=== PATIENT | female | born 1965 | race Caucasian/White ===

== ENCOUNTER 2019-03-01 13:39 | Outpatient (CLI) | payer BC ==
--- NOTE | 2019-03-07 11:10 | MMO ---
Bilateral MAMMO Bilat Screen [facility]. CLINICAL HISTORY: Patient is 53 years old and is seen for screening. The patient has the following family history of breast cancer: maternal aunt and maternal grandmother. The patient has no personal history of cancer. The patient has a history of bilateral Implants. VIEWS: The views performed were: bilateral craniocaudal with tomosynthesis; bilateral mediolateral oblique with tomosynthesis; and bilateral Implant displaced. FILMS COMPARED: The present examination has been compared to a prior imaging study performed at [facility] on 12/14/2017. MAMMOGRAM FINDINGS: There are scattered fibroglandular densities. Normal implants are present. There are no suspicious masses, suspicious calcifications, or new areas of architectural distortion. IMPRESSION: THERE IS NO MAMMOGRAPHIC EVIDENCE OF MALIGNANCY. A ROUTINE FOLLOW-UP MAMMOGRAM IN 1 YEAR IS RECOMMENDED. THE RESULTS OF THIS EXAM WERE SENT TO THE PATIENT. ACR BI-RADS Category 2 - Benign finding MAMMOGRAPHY NOTE: 1. A negative mammogram report should not delay a biopsy if a dominant of clinically suspicious mass is present. 2. Approximately 10% to 15% of breast cancers are not detected by mammography. 3. Adenosis and dense breasts may obscure an underlying neoplasm.
== END 2019-03-01 13:40 | disposition home or self-care (01) ==
LOC: BICMAMMO 13:39
PROVIDERS: ATTEND Family Medicine
DX: Z12.31 Encounter for screening mammogram for malignant neoplasm of breast (principal); Z80.3 Family history of malignant neoplasm of breast; Z98.82 Breast implant status
CPT/HCPCS: 77063; 77067

== ENCOUNTER 2020-01-31 21:49 | Emergency (ER) | payer BC ==
--- NOTE | 2020-01-31 22:21 | RAD ---
Exam:Right knee 4 views HISTORY: Soft tissue laceration COMPARISON: None FINDINGS: No joint effusion. Preserved joint spaces. No fracture or malalignment. There is soft tissu e injury and subcutaneous emphysema just superior to the patella. On the lateral projection, possible foreign body measuring 0.3 cm. IMPRESSION: Soft tissue laceration with questionable foreign body.
[2020-01-31] MEDS ORDERED: Acetaminophen 500 MG TAB ONE (23:41)
[2020-02-01] MEDS ORDERED: Ketorolac Tromethamine 30 MG/ML VIAL ONE (00:18)
[2020-02-01] MEDS ORDERED: Adacel (T-DAP) 0.5 ML SYRINGE ONE (00:32)
== END 2020-02-01 01:33 | disposition home or self-care (01) ==
LOC: ERS 21:49
DX: S81.011A Laceration without foreign body, right knee, initial encounter (principal); Z23 Encounter for immunization; W31.89XA Contact with other specified machinery, initial encounter
CPT/HCPCS: 12004; 90471; 90715; 96372; J1885

== ENCOUNTER 2020-03-20 10:44 | Outpatient (CLI) | payer BC ==
--- NOTE | 2020-03-20 11:29 | MMO ---
Bilateral MAMMO Bilat Screen [facility]. CLINICAL HISTORY: Patient is 54 years old and is seen for screening. The patient has the following family history of breast cancer: maternal aunt and maternal grandmother. The patient has no personal history of cancer. The patient has a history of bilateral Implants. VIEWS: The views performed were: bilateral craniocaudal with tomosynthesis; bilateral mediolateral oblique with tomosynthesis; and bilateral Implant displaced with tomosynthesis. FILMS COMPARED: The present examination has been compared to prior imaging studies performed at [facility] on 12/14/2017, and at [facility] on 03/01/2019. This study has been interpreted with the assistance of computer-aided detection. MAMMOGRAM FINDINGS: There are scattered fibroglandular densities. Normal implants are present. There are no suspicious masses, suspicious calcifications, or new areas of architectural distortion. IMPRESSION: THERE IS NO MAMMOGRAPHIC EVIDENCE OF MALIGNANCY. A ROUTINE FOLLOW-UP MAMMOGRAM IN 1 YEAR IS RECOMMENDED. THE RESULTS OF THIS EXAM WERE SENT TO THE PATIENT. ACR BI-RADS Category 2 - Benign finding MAMMOGRAPHY NOTE: 1. A negative mammogram report should not delay a biopsy if a dominant of clinically suspicious mass is present. 2. Approximately 10% to 15% of breast cancers are not detected by mammography. 3. Adenosis and dense breasts may obscure an underlying neoplasm. Reported by: DEE GLEZ MD Electonically Signed: [id number]
== END 2020-03-20 10:45 | disposition home or self-care (01) ==
LOC: BICMAMMO 10:44
PROVIDERS: ATTEND Family Medicine
DX: Z12.31 Encounter for screening mammogram for malignant neoplasm of breast (principal); Z80.3 Family history of malignant neoplasm of breast; Z98.82 Breast implant status
CPT/HCPCS: 77063; 77067

== ENCOUNTER 2021-04-29 14:59 | Outpatient (CLI) | payer BC | END 2021-04-29 15:00 | disposition home or self-care (01) | LOC: BICMAMMO 14:59 | PROVIDERS: ATTEND Family Medicine | DX: Z12.31 Encounter for screening mammogram for malignant neoplasm of breast (principal); Z80.3 Family history of malignant neoplasm of breast; Z98.82 Breast implant status; Z85.820 Personal history of malignant melanoma of skin | CPT/HCPCS: 77063; 77067 ==

== ENCOUNTER 2023-04-15 14:35 | Outpatient (CLI) | payer BC | END 2023-04-15 14:36 | disposition home or self-care (01) | LOC: BICMAMMO 14:35 | PROVIDERS: ATTEND Family Medicine | DX: Z12.31 Encounter for screening mammogram for malignant neoplasm of breast (principal); Z80.3 Family history of malignant neoplasm of breast; Z85.820 Personal history of malignant melanoma of skin; Z98.82 Breast implant status | CPT/HCPCS: 77063; 77067 ==

== ENCOUNTER 2024-06-19 11:03 | Outpatient (CLI) | payer BC | END 2024-06-19 11:04 | disposition home or self-care (01) | LOC: BICRAD 11:03 | PROVIDERS: ATTEND Family Medicine | DX: M19.90 Unspecified osteoarthritis, unspecified site (principal) ==

== ENCOUNTER 2024-07-17 11:27 | Outpatient (CLI) | payer BC | END 2024-07-17 11:28 | disposition home or self-care (01) | LOC: BICMAMMO 11:27 | PROVIDERS: ATTEND Family Medicine | DX: Z12.31 Encounter for screening mammogram for malignant neoplasm of breast (principal); Z80.3 Family history of malignant neoplasm of breast; Z85.820 Personal history of malignant melanoma of skin; Z98.82 Breast implant status | CPT/HCPCS: 77063; 77067 ==